=== PATIENT | male | born 1940 | race Caucasian/White ===

== ENCOUNTER 2019-05-03 02:03 | Inpatient (IN) | payer OTHER ==
[~2019-05-03] VITALS: Ht 177.8 cm; Wt 67.6 kg
[2019-05-03] MEDS ORDERED: TRAMADOL 50 MG50 MG PO (04:51)
[2019-05-03] MEDS ORDERED: ZYPREXA2.5 MG PO (04:52)
[2019-05-03] MEDS ORDERED: DEPAKOTE500 MG PO ×2 (04:55→04:57)
[2019-05-03 05:07] VITALS: BP 154/79
[2019-05-03] MEDS ORDERED: ABILIFY 5 MG TAB5 M1 PO (05:08)
[2019-05-03] MEDS ORDERED: PROSCAR 5MG TABL5 MG PO (05:12)
--- NOTE | 2019-05-03 05:13 | NUR ---
ADMISSION NOTE: THE PT ARRIVED ON THE UNIT VIA AMBULANCE FROM [facility]. THE PT LIVES AT [facility]. HE HAD BEEN AT THE [facility] FOR 2 WEEKS, HOME FOR 2 WEEKS, THEN BACK TO THE [facility] FOR 2 WEEKS. HE THREATENED HIS AND THE [facility] STAFF, VERBAL AGGRESSION, NOT ACTUALLY HITTING STAFF. THE [facility] SAID THAT HE HAD VASCULAR DEMENTIA WITH BEHAVIORAL DISTURBANCES. HALLUNICATIONS STARTED April. HAS A HISTORY OF UTI, GERD, HTN, BPH. THE PT IS CONTINENT OF B & B. ALERT ET ORIENTED X 1. THE PT HAS A UTI AND IS ON ABT. SKIN IS INTACT. HEART RATE REGULAR. LUNGS CLEAR BILATERALLY, RESP., EVEN, AND UNLABORED. +BS HEARD IN ALL 4 QUADRANTS. +PP BILATERALLY. WILL HARDLY SPEAK TO STAFF AT THIS TIME. STARTED ON 12 MINUTE CHECKS FOR HIS SAFETY.
[2019-05-03] MEDS ORDERED: PRINIVIL5 MG PO (05:16)
[2019-05-03] MEDS ORDERED: OMEPRAZOLE20 M2 PO (05:18)
[2019-05-03] MEDS ORDERED: FIBERCON CHEWA625 MG PO (05:47)
[2019-05-03] MEDS ORDERED: FLOMAX0.4 MG PO (05:50)
[2019-05-03] MEDS ORDERED: TRAZODONE HCL50 MG PO (05:53)
[2019-05-03] MEDS ORDERED: TYLENOL325 MG PO (05:56)
[2019-05-03 07:30] VITALS: BP 139/81
--- NOTE | 2019-05-03 08:10 | NUR ---
PT WAS UP WALKING THIS AM. PT SITTING AT TABLE FOR BREAKFAST. PT HAS HEAD DOWN AND UNDER TABLE. ENCOURAGED PT TO WAKE UP. PT DIDN'T EAT BREAKFAST. PT DID TAKE PO MEDS WITHOUT ANY ISSUES. PT DIDN'T GET ANY SLEEP LAST NIGHT.
[2019-05-03 08:22] VITALS: BP 139/81
--- NOTE | 2019-05-03 11:13 | NUR ---
PT HERE TO SEE HIM. PT SLEEPING AT THE TABLE. PT DIDN'T AWAKE WITH VISIT. PT SIGNED TREATMENT PAPERS, OBTAINED MEDICAL POA. PT DIDN'T EAT BREAKFAST OR LUNCH. PT STATED HE HAS BEEN UP 3 DAYS WITH NO SLEEP.
--- NOTE | 2019-05-03 12:00 | NUR ---
PT ASSISTED TO W/C X2 AIDES AND BACK TO LYE DOWN IN ROOM.
[2019-05-03 14:21] LABS: CREATININE 1.1 mg/dL (0.7-1.3); POTASSIUM 4.2 mmol/L (3.5-5.1)
[2019-05-03 14:52] LABS: TSH 2.78 uIU/mL (0.358-3.740)
--- NOTE | 2019-05-03 16:00 | NUR ---
PT UP IN DINNING ROOM. PT SLEEPING ON AND OFF IN DINNING ROOM. PT HOLDS ONTO FURNITURE WHEN GETTING UP AND WALKING.
[2019-05-03 22:00] VITALS: BP 102/60; BP 96/61
--- NOTE | 2019-05-04 00:44 | NUR ---
PT WAS UP IN DAYROOM WHEN THIS NURSE CAME ON SHIFT. VSS TAKEN AND ASSESSMENT DONE. PT WALKING AROUND IN DAYROOM. CONVERSATION WAS APPROPRIATE. DENIES PAIN. PATIENT HAD EVENING SNACK OF ICECREAM AND ATE 100%. EVENING PROGRESSED PT WITH C/O NECK PAIN. TYLENOL 650MG GIVEN AT 2011 WITH PAIN RESOLVING IN 40 MINUTES. PATIENT WAS UP WALKING IN HALLWAY AND HALLUCINATING ABOUT THINGS HE WAS SEEING AND WAS WORKING ON WITH HIS HANDS IN THE AIR. PT WALKED INTO ANOTHER PATIENT'S ROOM AND WAS JUST PACING IN IT. ASKED IF HE NEEDED TO USE THE RESTROOM HE STATED HE DID NOT. LET PATIENT KNOW HE WAS IN THE WRONG ROOM AND ASKED IF HE WOULD LIKE ME TO SHOW HIM HIS ROOM. HE STATES HE DID NOT AND HE WANTED TO "CONTINUE HIS WORK." HE CONTINUED MESSING WITH THE GUARD RAIL IN THE HALLWAY. UNABLE TO FIGURE OUT WHAT HE WAS WORKING ON IN HIS MIND. WALKED PATIENT TO ROOM AT BEDTIME AND PUT HIM TO BED. PT UP TWICE AND PT WENT TO DAYROOM AND TRIED TO KISS ANOTHER NURSE AND THEN ASKED HER IF SHE WOULD GO TO BED WITH HIM. I WALKED PATIENT BACK TO ROOM AND GOT HIM ANOTHER PILLOW TO SUPPORT HIS HEAD AND NECK. TRAZADONE AND OLANZAPINE PRN GIVEN AT 2200 AND PATIENT FELL ASLEEP WITHIN 10 MINUTES AND CONTINUES TO SLEEP AT THIS TIME.
--- NOTE | 2019-05-04 05:32 | NUR ---
PATIENT UP ONCE IN NIGHT TO VOID. HE AWOKE ONE OTHER TIME AND WAS WALKING IN THE ENGLAND BUT WAS EASILY DIRECTED BACK TO HIS ROOM AND IN TO HIS BED. LAB CAME AND PAUL HIS VALPROIC ACID LEVEL AT 0520. PATIENT WAS SLEEPING SOUNDLY AND WAS AWOKEN BUT COVERED HIS EYES DUE TO THE LIGHT. HE WENT BACK TO SLEEP. PATIENT DRY AND DENIED NEEDING TO USE THE TOILET AT THIS TIME.
--- NOTE | 2019-05-04 06:47 | NUR ---
PATIENT SLEEPING AND HAS SLEPT A TOTAL OF 7.1 HOURS OF 6AM.
[2019-05-04 07:30] VITALS: BP 99/63
--- NOTE | 2019-05-04 08:30 | NUR ---
PT IN DINNING ROOM, PT AWAKE AND EATING BREAKFAST. PT ABLE TO FEED SELF. PT GETS UP ON OWN AND WALKS IN ENGLAND OR AROUND THE DINNING ROOM, HEAD FACES DOWN.
--- NOTE | 2019-05-04 08:42 | NUR ---
SURAJ schedule a family meeting with pt Suellen on today, May 04, 2019 at 11:45am.
[2019-05-04 08:43] VITALS: BP 99/63
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
--- NOTE | 2019-05-04 12:50 | NUR ---
PT AT DOOR AND BANGING IT AND YELLED AT STAFF TO OPEN THE DOOR.
--- NOTE | 2019-05-04 13:28 | NUR ---
PT ATTEMPTED TO GO TO GROUP. PT UP WALKING AROUND AND UNABLE TO SIT STILL. PT HAD TO COME OUT OF GROUP.
--- NOTE | 2019-05-04 15:08 | NUR ---
PT SITTING AT TABLE DRINKING WATER. COMPLAINED OF HEADACHE, PT HAS BEEN WALKING AROUND UNIT. PT HAS BEEN EXIT SEEKING AT DOORS AND WANTING OUT.
--- NOTE | 2019-05-04 15:29 | NUR ---
PT FLIPPING CHAIRS OVER IN DINNING ROOM CHECKING BOTTOM OF LEGS. PT STATED TO THIS NURSE THAT SHE WAS IN A DOPE RING, THEN HE TOLD ANOTHER PT NOT TO LET THE STAFF GET TO THEM. WHEN ADM TYLENOL AND DEPAKOTE, PT WANTED TO PUT CUP OF MEDS IN POCKET AND TAKE THEM LATER. PT DID TAKE MEDS WITHOUT ANY ISSUES.
--- NOTE | 2019-05-04 18:04 | NUR ---
PT HAS BEEN WALKING AROUND UNIT. PT TALKING TO OTHER RESIDENT IN W/C STATING HE WILL HELP HIM, WAS PUSHING RESIDENT IN W/C OUT OF DINNING ROOM.
[2019-05-04 19:57] VITALS: BP 125/79
[2019-05-05 00:27] VITALS: BP 125/79
[2019-05-05 00:29] VITALS: BP 125/79
--- NOTE | 2019-05-05 03:23 | NUR ---
PT OUT EARLY IN SHIFT. REMAINS RESTLESS AND INDECISIVE. OUT OF BED SEVERAL TIMES DURING THE NIGHT, AND NEEDED TO BE RETURNED. TOOK HS MEDS W/O PROBLEM. INCONTINENT DURING THE NIGHT AND NEED FRESH LINEN. REDIRCTABLE, BUT CONFUSED.
[2019-05-05 13:45] VITALS: BP 129/76
--- NOTE | 2019-05-05 15:30 | NUR ---
0700: Report rec from noc shift, care assumed. 0800: Ambulatory with walker to DR, gait slow/unsteady at times. Feeds self, appetite fair, takes meds whole with enocuragement. Denies pain/discomfort, confused to time, place and situation, short term memory loss noted. Denies SI at this time, oriented to name only.
[2019-05-05 19:08] VITALS: BP 126/69
--- NOTE | 2019-05-05 23:47 | NUR ---
assumed care of the pt at 19pm. alert to person only. walks with a slow steady gait, will not use his walker. goes around the nurses station attempting to take things apart, pounding on the window with his hands, and pounding on the door to the nurses station, stating, "i am going to get the door off with my bare hands!!!" called the N.P. who was extension professor and he ordered for a shot to be given to the pt, which was given as ordered. 1/2 hour later he went to sleep after receiving the shot.
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
--- NOTE | 2019-05-06 06:18 | NUR ---
the pt slept 4.8 hours last night.
[2019-05-06 08:00] VITALS: BP 99/69
--- NOTE | 2019-05-06 09:34 | EKG ---
[address] [address] [facility] [place] [address] ELECTROCARDIOGRAM REPORT Name: PADMINI SMITH Room #: 522B-B ADM IN M.R.#: [id number] ������������������ Admission: 05/03/19 ������������������ Attend Phys: Jose Greenwodo DO Discharge: ������������������ Date of : 42 Report #: [id number] ����������������������������������������������������������������� [id number] THIS REPORT FOR: //name// [facility] Test Date: 2019-05-05 Test Time: 10:33:20 Pat Name: PADMINI SMITH Department: Room: [facility] Gender: M [employer] Internship: BENNIE : 1940 Requested By: Jose Greenwood Order Number: [id number] MD: Martinez Morillo Measurements Intervals [place] Rate: 71 P: 61 NC: 178 QRS: -4 QRSD: 140 T: 48 QT: 431 QTc: 469 Interpretive Statements Sinus rhythm Right bundle branch block Baseline wander in lead(s) V5 No previous ECG available for comparison Electronically Signed On 05-06-2019 9:33:44 CDT by Martinez Morillo [email or web address] ��������������������������������������������� <ELECTRONICALLY SIGNED> ���������������������������������������� By: Martinez Morillo MD, [facility] ��������������������������������������������� 05/06/19 0933 [id number] Martinez Morillo MD, FAC /EPI
--- NOTE | 2019-05-06 13:12 | NUR ---
PATIENT UP AND OUT ON THE UNIT WITH ASSIST OF STAFF. PATIENT IS IMPULSIVE, FORGETFUL, CONFUSED. ATTEMPTING TO GET OUT OF CHAIR WITHOUT ASSIST, PATIENT AMBULATE WITHOUT WALKER, GAIT IS UNSTEADY. PATIENT IS EATING MEALS AND DRINKING FLUID WELL. HE TOKK ALL HIS MORNING MEDICATION WHOLE WITHOUT DIFFICULTY. AFFECT IS BLUNTED, WORRIED. MOOD IS DEPRESSED, POOR EYE CONTACT. PATIENT PRESENTS WITH HALLUCINATION/DELUSION "THERE IS WATER ON THE FLOOR, THAT IS A POOL" . PATIENT DENIES SUICIDAL AND HOMOCIDAL IDEATION. HE IS NOT COGNITIVE ENOUGH TO RESPOND APPROPRIATELY TO FURTHER ASSESSMENT QUESTIONS PATIENT TOILETED BY STAFF. PATIENT REDIRECTED THAT FLOOR IS FREE OF WATER. WILL CONTINUE TO REDIRECT, AND MONITOR FOR SAFETY.
--- NOTE | 2019-05-06 14:12 | NUR ---
Staff came to inform me that Trever stated that he is so angry he feels like he is going to hurt somebody. Trever is sitting in the day room eating ice cream. Dr. Greenwood was notified.
[2019-05-06 19:28] VITALS: BP 115/80
--- NOTE | 2019-05-06 23:31 | NUR ---
NURSES NOTE - ASSUMED CARE AT 1900. HE HAS BEEN IN THE DAY ROOM SLOUCHED OVER MOST OF THE EVENING, HE WILL SPONTANEOUSLY GET UP AT TIMES REQUIRING HIM REDIRECTION TO SIT BACK DOWN OR ASK FOR STAFF HELP, WHICH HE AGREED TO. PATIENT ASKED TO GO TO SLEEP AND LAY DOWN BUT SEVERAL TIMES THIS NURSE COULD HEAR AUDIBLE LOUD NOISES FROM PATIENTS ROOM. HE APPEARED SHIVERING AND COLD. THIS NURSE PROVIDED ANOTHER BLANKET AND RAISED THE TEMPERATURE OF THE ROOM. HE DENIES SI HI, DEPRESSION ET ANXIETY. HE HAS NOT MADE ANY HI THREATS. HE DENIES MEDICAL CONCERNS WITH NO S/S OF DISTRESS. NURSING WILL MAINTAIN ALL PRECAUTIONS TO ENSURE SAFETY AT ALL TIMES.
[2019-05-07 08:25] VITALS: BP 131/73
--- NOTE | 2019-05-07 10:43 | NUR ---
ASSUMED PATIENT CARE AT 0715. PATIENT UP IN D.R. AT THAT TIME, SITTING IN W/C. VERY RESTLESS, CONTINUALLY GETTING UP AND AMBULATING WITHOUT ASSISTANCE. NURSE SUCCESSFULLY ENCOURAGED PATIENT TO SIT DOWN AND EAT MORE BREAKFAST AFTER SEVERAL ATTEMPTS. AFTER BREAKFAST, NURSE ASSISTED PATIENT TO HIS ROOM, WALKER GIVEN TO PATIENT FOR AMBULATION. NEEDS ENCOURAGEMENT TO USE WALKER PROPERLY. C/O PAIN ACROSS HIS NECK, ADMINISTERED ACETAMINOPHEN 650 MG PO AT ABOUT 10:[address] NEGRETE MADE ROUNDS ON PATIENT SHORTLY AFTER THAT. FLAT AFFECT, NO AGGRESSIVE BEHAVIOR, COOPERATIVE, COMPLIANT WITH MEDICATIONS.
--- NOTE | 2019-05-07 15:45 | NUR ---
SW observed the pt having hallucination that something or someone was trying hurt him. SW express to the pt that he is in safe place, and he will not be harm. SW mention to the psychiatrist that is having continiuance hallucinations.
--- NOTE | 2019-05-07 16:14 | NUR ---
PATIENT BECAME VERY AGITATED R/T "TOO MUCH MEDICATION, YOU ARE TRYING TO KILL ME." THEN BECAME PHYSICALLY AGGRESSIVE, ATTEMPTING TO RUN INTO STAFF WITH HIS WALKER. NEW ORDER FOR HALDOL 5 MG AND ATIVAN 0.5 MG, IM. MEDICATION ADMINISTERED AT 1545 P.M. TIMES THREE STAFF--[address] MARTINO [address] PATIENT CURRENTLY LYING QUIETLY IN BED WITHOUT AGGRESSION.
--- NOTE | 2019-05-07 18:22 | NUR ---
PATIENT HAS BEEN CALM WITHOUT FURTHER AGGRESSIVE BEHAVIOER SINCE RECEIVING HALDOL 5 MG AND ATIVAN 0.5 MG IM. CONTINUE TO MONITOR.
[2019-05-07 19:17] VITALS: BP 113/87
[2019-05-07 23:14] VITALS: BP 113/87
[2019-05-07 23:22] VITALS: BP 113/87
--- NOTE | 2019-05-08 02:38 | NUR ---
PT RSTLESS MUCH OF THE EVENING. UP AND DOWN IN DAYROOM. CONSTANTLY NEEDED TO BE REMINDED TO USE HIS WALKER. TOOK HS MEDS PRESCRIBED. ESCORTED TO BED. CONTINUED TO GET OUT OF BED. GIVEN PRN OLANZAPINE, BUT CONTINUED TO GET OUT OF BED, AND NEEDED TO BE ESCORTED. FINALLY DECIDED HE NEEDED TO USE RESTROOM. AFTER THAT WAS ABLE TO STAT IN BED. [id number] RESTING QUIETLY AT THIS TIME.
[2019-05-08 07:30] VITALS: BP 135/88
--- NOTE | 2019-05-08 07:30 | NUR ---
PT UP THIS AM WALKING IN ENGLAND. PT NOT USING WALKER. PT ENCOURAGED TO USE WALKER. PT LUNGS CLEAR. PT STATED HE HAS A HEADACHE DIDN'T KNOW HOW TO RATE IT.
--- NOTE | 2019-05-08 08:10 | NUR ---
TYLENOL 325MG 2 TABS PO FOR COMPLAINTS OF HEADACHE.
--- NOTE | 2019-05-08 13:30 | NUR ---
ASSISTED PT TO BATHROOM. DR. NEGRETE CAME IN TO SEE HIM. PT WAS TRYING TO HAVE BM. PT HAD INCON OF URINE IN BRIEF. PT LAYED DOWN IN BED AFTER USING BATHROOM.
--- NOTE | 2019-05-08 16:41 | NUR ---
PT WAS YELLING OUT ZARINA, WENT TO ROOM. PT VOIDED ON FLOOR BY NEXT BED. PT DIDN'T GET PANTS WET, APPLIED NEW SOCKS AND ASSISTED PT TO DINNING ROOM.
[2019-05-08 19:32] VITALS: BP 114/44
--- NOTE | 2019-05-09 02:21 | NUR ---
Care assumed of patient at 1900: Patient up ambulating about the unit at start of shift. Patient pacing the halls and other patient rooms. Patient encouraged to sit and speak with nurse. Patient was able to sit for a couple minutes then started to pace again. Patient encouraged to wait for staff assist prior to ambulation. Unknown if patient is able to understand direction. Patient also encouraged to keep his walker with him at all times. Patient would hold walker, walk with it backwards or sideways, all while attempting to ambulate. Patient started to pull his pants down to use the bathroom while in the day room. Patient assisted to his room and was able to urinate in the toilet. Brief dry at that time. Patient assisted back to day room. Offered snack which he declined. Offered puzzle/blocks which he declined. Patient required constant re-direction this shift. Patient was able to sit and take HS medications for nurse. Patient started to appear tired and was taken to the bathroom then assisted to bed. Patient slept approximately 1 hour then was wanting to get out of bed. Patient assisted to the bathroom but he became agitated at that time and started to push/hit staff away. Patient walked around unit. Gait unsteady at that time and required staff x2 to help gain and maintain balance. Not safe for patient to be ambulating at that time. Snack offered, declined. Patient denied pain. Unknown cause of agitation and restlessness. Staff sat with patient for quite awhile to provide 1:1 companionship. Patient confused and speaking incomprehensible at times. Patient provided PRN Olanzapine po for agitation. Patient was able to fall asleep approximately 1 hour later.
[2019-05-09 07:12] VITALS: BP 79/50
[2019-05-09 07:30] VITALS: BP 101/62
--- NOTE | 2019-05-09 07:45 | NUR ---
PT UP WANDERING AROUND THE UNIT THIS AM. PT HAS A CHAIR ALARM ON. PT SITTING AT TABLE WORKING ON A PUZZLE. PT ASKING FOR A SLEDGE HAMMER DUE TO ALARM GOING OFF OF CHAIR ALARM.
--- NOTE | 2019-05-09 14:54 | NUR ---
PT HAS BEEN WALKING AROUND IN DAY ROOM. PT CHECKING THE FLOOR AND RAILS.
--- NOTE | 2019-05-09 16:40 | NUR ---
PT HAD SHOWER, AFTER SHOWER PT COMPLAINED OF PAIN ALL OVER. ADM TYLENOL 325MG 2 TABS PO FOR GENERALIZED PAIN.
[2019-05-09 19:23] VITALS: BP 118/60
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
[2019-05-10 06:08] LABS: CALCIUM 9.1 mg/dL (8.5-10.1); CREATININE 1.2 mg/dL (0.7-1.3); POTASSIUM 3.6 mmol/L (3.5-5.1)
[2019-05-10 08:33] VITALS: BP 155/93
--- NOTE | 2019-05-10 14:04 | NUR ---
Date of Admission: 05/03/19 Date of Activity Therapy Assessment: 05/06/19 Activity Goal: Increase engagement and appropriate social interactions Initial Goal: 1 Group activity/day Weekly progress towards goal: Did not achieve goals Group participation level: Minimal Behaviors observed: Minimal participation in groups that patient has attended. At times, pt becomes restless and is unable to be redirected to stay seated in group and escorts himself from group participation. Ocassional verbal aggression. Plan: No change towards goal
[2019-05-10 15:53] VITALS: BP 118/60
--- NOTE | 2019-05-10 16:09 | NUR ---
ASSUMED CARE AT 0700 THIS MORNING. PT. IN BED AFTER HAVING A ROUGH NIGHT. HE SLEPT THROUGH MOST OF THE DAY. REFUSED BREAKFAST EXCEPT ONE BITE OF EGGS. AT LUNCH HE REFUSED ENTIRELY. SHE HAS HAD HIS HEAD DOWN ON THE TABLE MOST OF THE DAY. THIS STEEL PICKLER HAD TO WAKE HIM UP, LIFT HIS HEAD AND ASSIST HIM IN TAKING HIS MEDICATIONS. HE DID TAKE HIS MEDICATIONS. STAFF HAS TRIED TO GIVE HIM A BLANKET TO PUT HIS HEAD ON BUT HE WOULD NOT LIFT HIS HEAD. STAFF LIFTED HIS HEAD FOR HIM.
[2019-05-10 19:47] VITALS: BP 121/78
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
--- NOTE | 2019-05-11 04:19 | NUR ---
THE PT WAS SWINGING AT STAFF, ATTEMPTING TO GET OUT OF BED SEVERAL TIMES. SWINGING AT STAFF HE WAS ASSISTED BACK TO BED. THIS ENTRY MANAGER CALLED THE PHYSICIAN DRAMA PROFESSOR WHO ORDERED HALDOL 5 MG IM, WHICH WAS GIVEN ORDERED.
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
--- NOTE | 2019-05-11 06:24 | NUR ---
PT SLEPT FIVE HOURS LAST EVENING.
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
[2019-05-11 09:31] VITALS: BP 116/72
[2019-05-11 12:26] VITALS: BP 116/72
[2019-05-11 15:47] LABS: URINE BILIRUBIN 1+ (Negative); URINE BLOOD NEGATIVE (Negative); URINE CLARITY CLEAR; URINE COLOR YELLOW; URINE GLUCOSE-RANDOM* NEGATIVE (Negative); URINE KETONES TRACE (Negative); URINE LEUKOCYTES-REFLEX NEGATIVE (Negative); URINE NITRITE-REFLEX NEGATIVE (Negative); URINE PROTEIN (DIPSTICK) TRACE (Negative); URINE SPECIFIC GRAVITY >= 1.030 (1.005-1.035); URINE UROBILINOGEN 0.2 E.U./dl (0.2-1.0)
[2019-05-11 15:49] LABS: ICTOTEST (BILI CONFIRMATORY) Positive (Negative)
[2019-05-11 15:50] LABS: ABSOLUTE NEUTROPHILS 3.7 thou/uL (1.4-8.2); BASOPHILS 0.3 % (0.0-2.0); HEMATOCRIT 43.2 % (42.0-52.0); HEMOGLOBIN 14.5 gm/dL (14.0-18.0); LYMPHOCYTES 37.3 % (24.0-44.0); MCHC 33.7 g/dL (28.0-37.0); MCV 89.1 fL (80.0-100.0); MONOCYTES 8.9 % (1.0-8.0); PLATELET COUNT 196 thou/uL (150-400); POLYS 53.5 % (36.0-66.0); RBC 4.85 mil/uL (4.50-6.00); RDW 14.9 % (10.5-14.5)
[2019-05-11 15:57] LABS: CALCIUM 9.4 mg/dL (8.5-10.1); CREATININE 1.2 mg/dL (0.7-1.3); POTASSIUM 3.9 mmol/L (3.5-5.1)
[2019-05-11 19:21] VITALS: BP 130/91
--- NOTE | 2019-05-11 19:50 | NUR ---
ASSUMED CARE @ 1900, SITTING IN W/C IN DAY ROOM WITH HEAD BOWED. DENIED HI AND SI. DENIED HALLUCINATIONS. VSS, HRRR, LUNGS CTA. HANDS NOTED TO BE TREMBLING SLIGHTLY. WILL CONTINUE TO MONITOR Q 12 MINUTES FOR PT SAFETY.
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
--- NOTE | 2019-05-12 05:56 | NUR ---
SLEPT 3 HOURS. TOOK AM MEDS WITH [facility].
[2019-05-12 05:58] VITALS: BP 130/91
[2019-05-12 07:50] VITALS: BP 124/84
--- NOTE | 2019-05-12 12:00 | NUR ---
HAS BEEN VISIBLE IN DAYROOM SITTING IN WHEELCHAIR-CHIN TO CHEST POSTURE. DOES REPORT NECK "THROBBING" WHEN ASKED BY NURSING STAFF.AMBULATED IN HALLWAY X2 THIS AM WITH SBA X1 AND TOLERATES THIS FAIR. REQUIRES REMINDERS TO TAKE BIG STEPS HAS TENDENCY TO SHUFFLE FEET. TOILETED X3 SO FAR THIS SHIFT AND DID VOID APPROX, 250CC DARK YELLOW URINE IN TOILET-DID STILL DRIBBLE ON CLOTHING AND LEGS AND BECAME PHYSICALLY AGGRESSIVE WITH CLOTHING VHANGE AND PERINEAL CARE. NO SKIN BREAKDOWN NOTED.
[2019-05-12 20:15] VITALS: BP 119/83
[2019-05-12 23:00] VITALS: BP 119/83
[2019-05-13 08:00] VITALS: BP 86/57
[2019-05-13 09:24] VITALS: BP 86/57
--- NOTE | 2019-05-13 12:22 | NUR ---
ASSUMED CARE AT 0700 THIS MORNING. PT. ON THE UNIT, DRESSED, IN HIS W/C. HE ATE BREAKFAST ON THE UNIT. HE TOOK HIS MEDICATIONS (CRUSHED IN APPLESAUCE) WITHOUT PROBLEMS NOTED. NO AGITATION NOT OF THIS WRITING. ATTENDED MORNING MEETING. HERE AT 10:45 TO VISIT. HE SAT ON THE COUCH NEXT TO WHILE SHE WAS HERE. NO AGITATION NOTED UP TO THIS TIME. HE CONTINUES TO SIT WITH HIS HEAD DOWN. HE SPEECH IS MOSTLY CLEAR WHEN HE TALKS. DENIES SI/HI AND HAVE NOT SEEN ANY S/S OF [facility] UP TO THIS WRITING.
[2019-05-13 14:23] VITALS: BP 86/57
[2019-05-13 19:30] VITALS: BP 117/69
--- NOTE | 2019-05-13 22:15 | NUR ---
PT IS RESTLESS WALKING IN ROOM. WHEN TAKEN TO DAYROOM IN W/C WITH LAP BELT PT IS TAKING OFF CLOTHES REPEATEDLY, YELLING AT ALEXIS AND OTHER PEOPLE THAT ARE NOT PRESENT, GRABBING AT FURNITURE AND AIR, GRABBING AT FLOOR. PT NOT ABLE TO BE REDIRECTED WITH CONVERSATION OR BLANKET. PRN PROVIEDED.
--- NOTE | 2019-05-13 22:22 | NUR ---
UPON ARRIVAL TO SHIFT PT IN W/C PROPELING SELF IN DAY ROOM. PT SLOUCHED OVER, POOR EYE CONTACT, BLUNTED AFFECT. PT COMPLIANT WITH HS MEDICATIONS AND SNACK. PT COMPLIANT WITH ADL CARE AND PLACEMENT INTO BED WITH ALARM ON. W/C WITH LAP BELT IN USE WHEN IN W/C.
--- NOTE | 2019-05-14 01:19 | NUR ---
AFTER PRN MEDICATION, APPROXIMATELY AN HOUR PT WAS NOT TAKING OFF HIS CLOTHES OR GRABBING AT AIR, NO LONGER YELLING AT PEOPLE NOT PRESENT, BUT HE WAS STILL TAKING HIS CLOTHES OFF. PT ASSISTED TO BED AND ALRAM PLACED, PT WAS COMPLIANT.
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
--- NOTE | 2019-05-14 06:38 | NUR ---
dr returned page and updated re situation. supervisor speech returned call and was updated re situation.
[2019-05-14 09:12] VITALS: BP 150/99
--- NOTE | 2019-05-14 09:23 | NUR ---
SURAJ spoke with alec Cook the hospital liasion concerning pt been d/c to [facility]. Pt will be d/c at 1300. SURAJ will call pt concerning d/c .
[2019-05-14 09:38] VITALS: BP 117/69
[2019-05-14] MEDS ORDERED: FLOMAX0.4 MG PO (09:39)
[2019-05-14] MEDS ORDERED: DEPAKOTE SPRIN125 MG PO (09:41)
[2019-05-14] MEDS ORDERED: ZYPREXA 5 MG TAB5 M1 PO ×2 (09:42)
[2019-05-14] MEDS ORDERED: OLANZAPINE ODT5 MG PO (09:42)
[2019-05-14] MEDS ORDERED: MULTIVITAMINS PO (09:43)
[2019-05-14] MEDS ORDERED: FIBERCON CHEWA625 MG PO (09:43)
--- NOTE | 2019-05-14 10:40 | NUR ---
Patient Name: PADMINI SMITH Admission Date: 05/03/19 DISCHARGE PLAN: Pt will d/c to [facility] Care Assessment: Pt was assessed by Dr. blackwell, and diagnosed with Major Neurocognitve Disorder with Behavior Disturbance. Level II Assessment: None Transportation: Pt willl be transported by [facility] Special Instructions/Notes: Pt will need a memory care unit, and continuance care with his psychiatrist. DISCHARGE TO FACILITY: Memory Care unit Facility: [facility] Fax: Address: [address] [place] [phone] Contact Name: Brielle Cook PCP: LÓPEZ Psychiatrist: LARRY Psychiatrist
[2019-05-14 10:47] VITALS: BP 117/69
--- NOTE | 2019-05-14 11:10 | NUR ---
0700: Report rec from noc shift, care assumed. Pt in DR sitting in w/c,lap murali in place, mild agitation noted, slumpted posture noted due to poss cervical/spine degengeration. 0800: Feeds self with set-up assistance, appetite poor due to cognitive impairment, pt unable to navigate eating utensils and spills liquids trying to handle them, refuses to let staff assist. Takes meds whole w/o difficulty.
--- NOTE | 2019-05-16 12:03 | D ---
[facility] [place] [address] DISCHARGE SUMMARY Name: PADMINI SMITH Room #: 52-B DIS IN M.R.#: [id number] Admission: 05/03/19 ������������������ Attend Phys: Jose Greenwood DO Discharge: 05/14/19 ������������������ Date of : 42 Report #: [id number] THIS REPORT FOR: //name// CC: Jose Greenwood James Graham DATE OF SERVICE: 05/14/2019 INPATIENT PSYCHIATRIC DISCHARGE SUMMARY ATTENDING PHYSICIAN: Jose Greenwood DO PRIMARY CARE PHYSICIAN: Lucas Campa DO PRICING COORDINATOR AT THE TIME OF DISCHARGE: Johan Reed MD DISCHARGE DIAGNOSES: Major neurocognitive disorder, most likely due to Alzheimer's disease with behavioral disturbance. Comorbidities medical include hypertension, degenerative joint disease, gastroesophageal reflux disease, dehydration due to poor intake and nephrolithiasis, no need to pursue at present. DISCHARGE PLAN: He is discharged to [facility]. Medical and psychiatric care will be provided by that facility. I have noted that Dr. Reeves is his PCP. He will be transported by [facility]. REASON FOR ADMISSION: He had been at [facility] and explicitly sent from [facility]. He has seen Dr. Torres for Psychiatry in the past, Fiona is medical DPOA. Apparently, he made statements threatening to kill or staff at the facility and besides increasing agitation that is what prompted his admission. HOSPITAL COURSE: The patient was admitted to the geriatric psychiatry unit. The patient improved indeed difficult to get a good favorable response from. He was titrated on Depakote up to 750 mg 3 times a day with a blood level of 69. I elected to use olanzapine instead of Haldol or Risperdal in the a.m., so he was titrated up to 20 mg a day. He has variable sundowning and motor restlessness, particularly in the evening. Unfortunately, the disease is taking advanced course of globally the patient's comfort safety and dignity. CONDITION ON DISCHARGE: Not suicidal or homicidal. LABORATORY DATA: This admission, 05/11/2019, CBC was done, H and H 14.5 and 43.2, white count 7.0, platelet count 196. Chemistries on 05/11/2019, sodium 141, potassium 3.9, chloride 103, bicarbonate 28, anion gap 10, BUN 9, creatinine 1.2, estimated GFR 59, glucose 115, calcium 9.4. TSH at admission [facility] [address] [place] [address] DISCHARGE SUMMARY Name: PADMINI SMITH Room #: 522B-B DIS IN M.R.#: [id number] Admission: 05/03/19 ������������������ Attend Phys: Jose Greenwood DO Discharge: 05/14/19 ������������������ Date of : 42 Report #: [id number] was 2.780, which is normal, vitamin B12 level of 720, which is normal. Urinalysis showed some trace ingredients, but was not enough to culture. Initial Depakote level at lower dose was 54, repeat was 69. VITAL SIGNS: On the day of discharge is as follows: Pulse 98, BP 117/69 and was afebrile, not on oxygen. MENTAL STATUS EXAMINATION: This is a well-developed, disheveled male, in wheelchair with a typical 90-degree bend of his neck. Denied SI, HI. Some helplessness, some hopelessness. Attention limited. Concentration limited. Speech shows sporadic. Thought process is very limited, nonlinear. Thought content, quite variable, nonsensical at times. Memory not formally tested. Insight impaired. Judgment impaired. Fund of knowledge well below average. Prognosis for this patient is poor given her degenerative disease, age of 79 and already a low prior level of functioning prior to geriatric psych admission. DISCHARGE MEDICATIONS: Tamsulosin 0.4 mg b.i.d. for BPH, Depakote sprinkles form 1250 mg twice daily with meals, olanzapine 5 mg p.o. q. 6 p.r.n. for severe agitation, olanzapine 5 mg p.o. daily at 1430, 15 mg p.o. at bedtime for mood stabilization, calcium polycarbophil or FiberCon tablet 500 mg p.o. daily for constipation, multivitamin 1 tablet p.o. daily, finasteride 5 mg p.o. daily for BPH, lisinopril 5 mg p.o. daily, trazodone 50 mg at bedtime and Tylenol 650 mg p.o. q. 6 p.r.n. ��������������������������������������������� <ELECTRONICALLY SIGNED> ���������������������������������������� By: Jose Greenwood DO ��������������������������������������������� 05/16/19 [id number] Jose Greenwood DO /nt
== END 2019-05-14 13:00 | DRG 57 ==
LOC: SBH 02:03
PROVIDERS: Hospitalist; Internal Medicine Geriatric Medicine; ADMIT Psychiatry & Neurology Psychiatry
DX: G30.9 Alzheimer's disease, unspecified (principal); F01.51 Vascular dementia, unspecified severity, with behavioral disturbance; F02.81 Dementia in other diseases classified elsewhere, unspecified severity, with behavioral disturbance; E44.0 Moderate protein-calorie malnutrition; I10 Essential (primary) hypertension; E86.0 Dehydration; M19.90 Unspecified osteoarthritis, unspecified site; N20.0 Calculus of kidney; Z88.1 Allergy status to other antibiotic agents; Z88.2 Allergy status to sulfonamides; Z88.8 Allergy status to other drugs, medicaments and biological substances; Z79.899 Other long term (current) drug therapy; Z68.21 Body mass index [BMI] 21.0-21.9, adult
CPT/HCPCS: 10880